=== PATIENT | female | born 1975 | race Caucasian/White ===

== ENCOUNTER 2016-10-01 10:31 | Day surgery (SDC) | payer OTHER ==
[2016-10-01] MEDS ORDERED: LACTATED RINGERS 1,000 ML IV ONE (10:38)
[2016-10-01] MEDS ORDERED: ceFAZolin 1 GM VIAL ONE (10:39)
[2016-10-01] MEDS ORDERED: BUPIVACAINE 0.5%-EPI 1:200000 PF 30 ML VIAL SUBQ ONE ×2 (12:29→12:52)
[2016-10-01] MEDS ORDERED: PROPOFOL 200 MG/20 ML VIAL IVP ONE (12:40)
[2016-10-01] MEDS ORDERED: DEXAMETHASONE 4 MG/ML VIAL IVP ONE (12:40)
[2016-10-01] MEDS ORDERED: MORPHINE IVP ONE ×2 (12:40)
[2016-10-01] MEDS ORDERED: LIDOCAINE-MPF 2% 5 ML VIAL IM ONE (12:40)
[2016-10-01] MEDS ORDERED: ONDANSETRON 4 MG/2 ML VIAL IVP ONE (12:40)
[2016-10-01] MEDS ORDERED: ACETAMINOPHEN 1,000 MG/100 ML VIAL IV ONE (12:40)
[2016-10-01] MEDS ORDERED: KETOROLAC 30 MG/ML VIAL IVP ONE (12:40)
[2016-10-01 14:00] VITALS: BP 100/56
[2016-10-01] MEDS ORDERED: ACETAMINOPHEN/CODEINE 300 MG/30 MG TABLET PO ONE (14:05)
--- NOTE | 2016-10-03 03:08 | OPERATIVE REPORT ---
DATE OF SURGERY: 10/01/2016 00:00:00 SURGEON: Sari Mcclain MD. PROCEDURE: Excision of abdominal wall mass. INDICATION FOR PROCEDURE: This is a 41-year-old female who presented to my office complaining of a lump to the right of her umbilicus. An ultrasound demonstrated a subcentimeter lesion in the subcutaneous tissue attached to the anterior rectus sheath and biopsy was recommended. PREOPERATIVE DIAGNOSIS: Abdominal wall mass. POSTOPERATIVE DIAGNOSIS: Abdominal wall mass. FINDINGS: After obtaining informed consent from the patient, she was brought into the operating room and positioned on the operating table in the supine position, taking note of pressure points. She was administered 2 grams of Ancef. She was prepped and draped in the usual sterile fashion. She was intubated by Anesthesia. A time-out was then taken according to protocol. A right periumbilical transverse incision was created and deepened down through the subcutaneous tissue to the anterior rectus sheath. A very small nodule was found at this location and this was excised with electrocautery. A very small portion of her anterior rectus sheath was also excised with the specimen. It was noted to be firm fatty tissue and this was passed off as a specimen. The wound cavity was palpated and additional lumpy fat deposits were also removed and passed off as abdominal wall fat. Further palpation did not reveal any concerning lesions. The anterior rectus sheath was closed with a figure-of- eight 0 Vicryl suture. Subcutaneous tissue was irrigated and closed with 3-0 Vicryl, and the skin closed with 4-0 Monocryl. The patient was extubated and taken to recovery in stable condition. ESTIMATED BLOOD LOSS: Minimal. FLUIDS RECEIVED: Please see anesthesia record. SPECIMEN: Abdominal wall fat and abdominal wall mass. COMPLICATIONS: None. JOB #: [id number] EXT JOB #:[id number] RICHIE
== END 2016-10-01 10:32 | disposition home or self-care (01) ==
LOC: SDS 10:31
PROVIDERS: ATTEND Surgery
PROC: 0WBF0ZZ Excision of Abdominal Wall, Open Approach (ICD-10-PCS; principal; 2016-10-01 11:30)
DX: R19.05 Periumbilic swelling, mass or lump (principal); E03.9 Hypothyroidism, unspecified; F41.9 Anxiety disorder, unspecified; F32.9 Major depressive disorder, single episode, unspecified
CPT/HCPCS: 22902; A9270; J0131; J2274; J7120; 88304